=== PATIENT | male | born 1940 | race Caucasian/White ===

== ENCOUNTER 2017-06-13 07:33 | Inpatient (IN) | payer OTHER ==
[2017-06-13] MEDS: DIPHENHYDRAMINE 50 MG INJ IV (07:57)
[2017-06-13] MEDS: METHYLPREDNISOLONE 125 MG INJ IV (07:57)
[2017-06-13] MEDS: FAMOTIDINE 20 MG INJ IV (07:57)
[2017-06-13] MEDS: EPINEPHrine 1 MG INJ IM (07:57)
[2017-06-13] MEDS: IPRATROPIUM (NEB) 0.5 MG/2.5 ML AMP INH (07:59)
[2017-06-13] MEDS: ALBUTEROL 0.083% (NEB) 2.5 MG/3 ML AMP INH (07:59)
[2017-06-13 08:25] LABS: ADD MAN DIFF? NO
[2017-06-13 08:33] LABS: ABNORMAL IP MESSAGE 1; BASOPHIL # 0.1 10^3/ul (0.0-0.1); BASOPHILS % 0.5 % (0.0-2.0); EOSINOPHILS # 0.2 10^3/ul (0.0-0.5); HEMATOCRIT 48.3 % (42.0-52.0); HEMOGLOBIN 16.7 g/dl (14.0-18.0); LYMPHOCYTES # 5.1 10^3/ul (0.8-2.9); LYMPHOCYTES % 44.6 % (15.0-51.0); MEAN CORPUSCULAR HGB CONC 34.6 g/dl (32.0-37.0); MEAN CORPUSCULAR VOLUME 83.9 fl (82.0-101.0); MEAN PLATELET VOLUME 9.9 fl (7.4-10.4); MONOCYTE # 0.8 10^3/ul (0.3-0.9); MONOCYTES % 6.9 % (0.0-11.0); NEUTROPHIL # 5.2 10^3/ul (1.6-7.5); NEUTROPHILS % 45.6 % (39.0-77.0); PLATELET COUNT 193 10^3/UL (140-415); POSITIVE DIFF @See below; RED BLOOD COUNT 5.76 10^6/ul (4.70-6.10); RED CELL DISTRIBUTION WIDTH 13.1 % (11.5-14.5)
[2017-06-13 08:33] LABS: WHITE BLOOD COUNT 11.4 10^3/ul (4.8-10.8)
[2017-06-13 08:47] LABS: ALANINE AMINOTRANSFERASE 35 IU/L (13-69); ALBUMIN 4.8 g/dl (3.3-4.9); ALBUMIN/GLOBULIN RATIO 1.29; ALKALINE PHOSPHATASE 107 IU/L (42-121); ANION GAP 18 (8-16); ASPARTATE AMINO TRANSFERASE 33 IU/L (15-46); BILIRUBIN,INDIRECT 1.5 mg/dl (0-1.1); BILIRUBIN,TOTAL 1.5 mg/dl (0.2-1.3); BLOOD UREA NITROGEN 14 mg/dl (7-20); CALCIUM 9.3 mg/dl (8.4-10.2); CARBON DIOXIDE 25 mmol/L (21-31); CHLORIDE 102 mmol/L (97-110); CREATININE 0.93 mg/dl (0.61-1.24); GLUCOSE 113 mg/dl (70-220); POTASSIUM 4.1 mmol/L (3.5-5.1); SODIUM 141 mmol/L (135-144); TOTAL PROTEIN 8.5 g/dl (6.1-8.1)
[2017-06-13 08:52] LABS: PROTIME 12.2 Sec (11.9-14.9)
[2017-06-13 08:54] LABS: PARTIAL THROMBOPLASTIN TIME 33.8 Sec (25.0-35.0)
[2017-06-13] MEDS ORDERED: ACETAMINOPHEN 325 MG TAB PO (10:00)
[2017-06-13] MEDS ORDERED: ONDANSETRON 4 MG INJ IV (10:00)
[2017-06-13 10:04] LABS: TRANSFUSION CHARGE 1 1
[2017-06-13] MEDS ORDERED: DOCUSATE SODIUM 100 MG CAP PO (16:30)
[2017-06-13] MEDS: AMLODIPINE 5 MG TAB PO (16:30)
[2017-06-13] MEDS ORDERED: DIPHENHYDRAMINE 50 MG INJ IV (16:30)
[2017-06-13] MEDS ORDERED: hydrALAzine 20 MG INJ IV (16:30)
[2017-06-13] MEDS ORDERED: ALBUTEROL 0.083% (NEB) 2.5 MG/3 ML AMP HHN (16:30)
[2017-06-13] MEDS: METOPROLOL 50 MG TAB PO (21:27)
[2017-06-13] MEDS: ATORVASTATIN 40 MG TAB PO (21:28)
[2017-06-14] MEDS: FISH OIL 1,000 MG CAP PO (08:33)
[2017-06-14] MEDS: ASPIRIN (EC) 81 MG TAB PO (08:33)
[2017-06-14] MEDS: METOPROLOL 50 MG TAB PO (08:34)
[2017-06-14] MEDS: MAGNESIUM OXIDE 400 MG TAB PO (08:34)
[2017-06-14] MEDS: AMLODIPINE 5 MG TAB PO (08:34)
[2017-06-14] MEDS: MULTIVITAMINS THERAPEUTIC TAB PO (08:35)
[2017-06-14] MEDS: predniSONE 20 MG TAB PO (08:35)
[2017-06-14] MEDS: traMADol 50 MG TAB PO (14:59)
[2017-06-15] MEDS ORDERED: predniSONE 50 MG TAB PO (09:00)
[2017-06-16] MEDS ORDERED: predniSONE 20 MG TAB PO (09:00)
[2017-06-17] MEDS ORDERED: predniSONE 10 MG TAB PO (09:00)
[2017-06-18] MEDS ORDERED: predniSONE 20 MG TAB PO (09:00)
[2017-06-19] MEDS ORDERED: predniSONE 10 MG TAB PO (09:00)
== END 2017-06-14 16:50 | disposition home or self-care (01) | DRG 916 ==
LOC: TEL 09:48 → E/R 07:33
DX: T78.3XXA Angioneurotic edema, initial encounter (principal); I10 Essential (primary) hypertension; I25.10 Atherosclerotic heart disease of native coronary artery without angina pectoris; Z95.1 Presence of aortocoronary bypass graft; E78.5 Hyperlipidemia, unspecified; Z79.82 Long term (current) use of aspirin; T88.8XXA Other specified complications of surgical and medical care, not elsewhere classified, initial encounter
CPT/HCPCS: 36430; 71045; 80053; 85025; 85610; 85730; 86850; 86900; 86901; 94664; 96372; 96374; 96375; 99291-25

== ENCOUNTER 2018-03-11 03:30 | Inpatient (IN) | payer OTHER ==
[2018-03-11 03:58] LABS: ADD MAN DIFF? NO
[2018-03-11] MEDS: SOD CHLORIDE 0.9% 1,000 ML IV ×4 (03:58→20:25)
[2018-03-11] MEDS: ONDANSETRON 4 MG INJ IV (03:58)
[2018-03-11] MEDS: morphine 4 MG/ML VIAL IV (03:58)
[2018-03-11 04:31] LABS: BASOPHIL # 0.1 10^3/ul (0.0-0.1); BASOPHILS % 0.5 % (0.0-2.0); EOSINOPHILS % 0.2 % (0.0-7.0); HEMATOCRIT 49.1 % (42.0-52.0); HEMOGLOBIN 16.6 g/dl (14.0-18.0); LYMPHOCYTES # 1.9 10^3/ul (0.8-2.9); LYMPHOCYTES % 14.6 % (15.0-51.0); MEAN CORPUSCULAR HEMOGLOBIN 28.2 pg (29.0-33.0); MEAN CORPUSCULAR HGB CONC 33.8 g/dl (32.0-37.0); MEAN CORPUSCULAR VOLUME 83.5 fl (82.0-101.0); MONOCYTE # 0.4 10^3/ul (0.3-0.9); MONOCYTES % 2.9 % (0.0-11.0); NEUTROPHIL # 10.6 10^3/ul (1.6-7.5); NEUTROPHILS % 81.3 % (39.0-77.0); PLATELET COUNT 213 10^3/UL (140-415); RED BLOOD COUNT 5.88 10^6/ul (4.70-6.10); RED CELL DISTRIBUTION WIDTH 13.5 % (11.5-14.5)
[2018-03-11 04:51] LABS: ADD UMIC YES; UR ASCORBIC ACID NEGATIVE (NEGATIVE); UR BILIRUBIN (Dip) NEGATIVE (NEGATIVE); UR BLOOD (Dip) NEGATIVE (NEGATIVE); UR CLARITY CLEAR (CLEAR); UR COLOR YELLOW (YELLOW); UR GLUCOSE (Dip) NEGATIVE (NEGATIVE); UR KETONES (Dip) NEGATIVE (NEGATIVE); UR LEUKOCYTE ESTERASE (Dip) NEGATIVE Leu/ul (NEGATIVE); UR NITRITE (Dip) NEGATIVE (NEGATIVE); UR RBC 1 /HPF (0-5); UR SPECIFIC GRAVITY (Dip) 1.015 (1.003-1.030); UR TOTAL PROTEIN (Dip) 2+ mg/dl (NEGATIVE); UR UROBILINOGEN (Dip) NEGATIVE (NEGATIVE); UR WBC 1 /HPF (0-5)
[2018-03-11 04:59] LABS: LACTIC ACID 2.4 mmol/L (0.5-2.0)
[2018-03-11] MEDS: metroNIDAZOLE 500 MG/NS (PMX) 100 ML IVPB ×2 (05:45→12:45)
[2018-03-11] MEDS: PIPER-TAZO 3.375 GM IV (PMX) 100 ML IVPB ×4 (06:01→23:52)
[2018-03-11] MEDS: SODIUM CHLORIDE 0.9% 1L BAG IV* (06:01)
[2018-03-11 07:03] LABS: ALBUMIN 4.7 g/dl (3.3-4.9); ALBUMIN/GLOBULIN RATIO 1.17; ALKALINE PHOSPHATASE 121 IU/L (42-121); ANION GAP 14 (8-16); ASPARTATE AMINO TRANSFERASE 37 IU/L (15-46); BILIRUBIN,INDIRECT 1.4 mg/dl (0-1.1); BILIRUBIN,TOTAL 1.4 mg/dl (0.2-1.3); BLOOD UREA NITROGEN 13 mg/dl (7-20); CALCIUM 9.8 mg/dl (8.4-10.2); CARBON DIOXIDE 26 mmol/L (21-31); CHLORIDE 104 mmol/L (97-110); CREATININE 0.93 mg/dl (0.61-1.24); GLUCOSE 172 mg/dl (70-220); LIPASE 165 U/L (23-300); POTASSIUM 3.9 mmol/L (3.5-5.1); SODIUM 140 mmol/L (135-144); TOTAL PROTEIN 8.7 g/dl (6.1-8.1)
[2018-03-11 07:13] LABS: TROPONIN-I 0.012 ng/ml (0.000-0.120)
[2018-03-11 07:24] LABS: ALANINE AMINOTRANSFERASE 27 IU/L (13-69)
[2018-03-11] MEDS ORDERED: ONDANSETRON 4 MG INJ IV (07:30)
[2018-03-11] MEDS ORDERED: NACL 0.9% 3 ML SYG IV (07:30)
[2018-03-11] MEDS: FAMOTIDINE 20 MG INJ IV ×2 (08:18→20:20)
[2018-03-11] MEDS: DEXTROSE 5%-0.45% NACL 1,000 ML IV (08:18)
[2018-03-11] MEDS: morphine 2 MG INJ IV ×3 (11:54→20:20)
[2018-03-11 13:48] LABS: LACTIC ACID 2.7 mmol/L (0.5-2.0)
[2018-03-12] MEDS: SOD CHLORIDE 0.9% 1,000 ML IV ×4 (02:30→18:30)
[2018-03-12] MEDS: morphine 2 MG INJ IV (05:11)
[2018-03-12] MEDS: PIPER-TAZO 3.375 GM IV (PMX) 100 ML IVPB ×3 (05:11→23:33)
[2018-03-12 05:59] LABS: ADD MAN DIFF? NO
[2018-03-12 06:19] LABS: BASOPHIL # 0.1 10^3/ul (0.0-0.1); BASOPHILS % 0.2 % (0.0-2.0); HEMATOCRIT 41.6 % (42.0-52.0); HEMOGLOBIN 14.1 g/dl (14.0-18.0); LYMPHOCYTES # 1.6 10^3/ul (0.8-2.9); LYMPHOCYTES % 8.1 % (15.0-51.0); MEAN CORPUSCULAR HEMOGLOBIN 28.8 pg (29.0-33.0); MEAN CORPUSCULAR HGB CONC 33.9 g/dl (32.0-37.0); MEAN CORPUSCULAR VOLUME 85.1 fl (82.0-101.0); MEAN PLATELET VOLUME 10.3 fl (7.4-10.4); MONOCYTE # 1.2 10^3/ul (0.3-0.9); MONOCYTES % 5.9 % (0.0-11.0); NEUTROPHIL # 16.9 10^3/ul (1.6-7.5); NEUTROPHILS % 84.5 % (39.0-77.0); PLATELET COUNT 153 10^3/UL (140-415); RED BLOOD COUNT 4.89 10^6/ul (4.70-6.10); RED CELL DISTRIBUTION WIDTH 14.9 % (11.5-14.5)
[2018-03-12 06:36] LABS: PHOSPHORUS 2.2 mg/dl (2.5-4.9)
[2018-03-12 06:36] LABS: CHOL/HDL RATIO 3.5 RATIO; CHOLESTEROL 113 mg/dl (100-200); HDL CHOLESTEROL 32 mg/dl (31-75); LDL CHOLESTEROL,CALCULATED 61 mg/dl; MAGNESIUM 1.8 mg/dl (1.7-2.5); TRIGLYCERIDES 99 mg/dl (0-149)
[2018-03-12] MEDS ORDERED: SEVOFLURANE 15 MIN (07:00)
[2018-03-12] MEDS ORDERED: SUCCINYLCHOLINE CHLORIDE 100 MG/5 ML SYG IV (07:00)
[2018-03-12] MEDS: HEPARIN 5,000 UNIT/0.5 ML VIAL SC ×2 (09:00→20:49)
[2018-03-12] MEDS: FAMOTIDINE 20 MG INJ IV ×2 (09:09→20:44)
[2018-03-12] MEDS ORDERED: PROPOFOL 20 ML (10:08)
[2018-03-12] MEDS ORDERED: ROCURONIUM 50 MG INJ (10:08)
[2018-03-12] MEDS ORDERED: ROPIVACAINE 0.5 % 30 ML VIAL (10:08)
[2018-03-12] MEDS ORDERED: FENTAnyl 50 MCG/ML VIAL (10:08)
[2018-03-12] MEDS ORDERED: LIDOCAINE 2% (SDV) 5 ML INJ (10:08)
[2018-03-12] MEDS ORDERED: PROVENTIL HFA 6.7GM INHALER (10:17)
[2018-03-12] MEDS ORDERED: CEFAZOLIN 1 GM INJ (10:45)
[2018-03-12] MEDS ORDERED: ONDANSETRON 4 MG INJ (10:46)
[2018-03-12] MEDS ORDERED: FAMOTIDINE 20 MG INJ (10:46)
[2018-03-12] MEDS ORDERED: DEXAMETHASONE 4 MG/ML 1 ML INJ (10:46)
[2018-03-12] MEDS ORDERED: ACETAMINOPHEN 1000MG/100ML IV 100 ML (10:54)
[2018-03-12] MEDS ORDERED: HYDROmorphONE 2 MG/ML SYG (10:55)
[2018-03-12] MEDS ORDERED: hydrALAzine 20 MG INJ (10:56)
[2018-03-12] MEDS: BUPIVACAINE 0.25% (MPF) 30 ML INJ (11:29)
[2018-03-12] MEDS: LIDOCAINE 1%/EPI 30 ML INJ (11:29)
[2018-03-12] MEDS ORDERED: DIPHENHYDRAMINE 50 MG INJ IV (11:30)
[2018-03-12] MEDS ORDERED: HYDROmorphONE 1 MG/5 ML IV SYRINGE IV (11:30)
[2018-03-12] MEDS ORDERED: ONDANSETRON 4 MG INJ IV ×2 (11:30→12:30)
[2018-03-12] MEDS ORDERED: PROCHLORPERAZINE 10 MG INJ IV (11:30)
[2018-03-12] MEDS ORDERED: MEPERIDINE 25 MG INJ IV (11:30)
[2018-03-12] MEDS ORDERED: OXYCODONE/ACETAMINOPHEN (5/325) TAB PO (11:30)
[2018-03-12] MEDS ORDERED: FENTAnyl 50 MCG/ML VIAL IV (11:30)
[2018-03-12] MEDS ORDERED: LABETALOL HCL 20MG INJ IV (11:30)
[2018-03-12] MEDS ORDERED: SUGAMMADEX SODIUM 200 MG/2 ML VIAL IV (11:46)
[2018-03-12] MEDS: hydrALAzine 20 MG INJ IV (12:49)
[2018-03-12] MEDS: D5W-0.45 NACL + KCL 20 MEQ 1,000 ML IV ×2 (13:46→21:31)
[2018-03-12] MEDS: ACETAMINOPHEN 325 MG TAB PO (18:34)
[2018-03-13] MEDS: HYDROmorphONE 0.5 MG/0.5 ML SYG IV ×2 (01:09→05:05)
[2018-03-13] MEDS: D5W-0.45 NACL + KCL 20 MEQ 1,000 ML IV ×3 (01:12→16:28)
[2018-03-13] MEDS: morphine 2 MG INJ IV ×2 (02:13→23:58)
[2018-03-13] MEDS: PIPER-TAZO 3.375 GM IV (PMX) 100 ML IVPB ×4 (05:04→23:41)
[2018-03-13 05:50] LABS: ADD MAN DIFF? NO
[2018-03-13 06:00] LABS: BASOPHILS % 0.2 % (0.0-2.0); HEMATOCRIT 41.4 % (42.0-52.0); HEMOGLOBIN 13.6 g/dl (14.0-18.0); LYMPHOCYTES # 1.3 10^3/ul (0.8-2.9); LYMPHOCYTES % 6.4 % (15.0-51.0); MEAN CORPUSCULAR HEMOGLOBIN 28.3 pg (29.0-33.0); MEAN CORPUSCULAR HGB CONC 32.9 g/dl (32.0-37.0); MEAN CORPUSCULAR VOLUME 86.3 fl (82.0-101.0); MEAN PLATELET VOLUME 10.6 fl (7.4-10.4); MONOCYTE # 1.1 10^3/ul (0.3-0.9); MONOCYTES % 5.5 % (0.0-11.0); NEUTROPHIL # 16.9 10^3/ul (1.6-7.5); NEUTROPHILS % 86.6 % (39.0-77.0); PLATELET COUNT 149 10^3/UL (140-415); RED CELL DISTRIBUTION WIDTH 15.1 % (11.5-14.5)
[2018-03-13 06:00] LABS: WHITE BLOOD COUNT 19.6 10^3/ul (4.8-10.8)
[2018-03-13 06:35] LABS: ANION GAP 11 (8-16); BLOOD UREA NITROGEN 14 mg/dl (7-20); CALCIUM 8.1 mg/dl (8.4-10.2); CARBON DIOXIDE 23 mmol/L (21-31); CHLORIDE 109 mmol/L (97-110); CREATININE 1.05 mg/dl (0.61-1.24); GLUCOSE 136 mg/dl (70-220); POTASSIUM 4.1 mmol/L (3.5-5.1); SODIUM 139 mmol/L (135-144)
[2018-03-13] MEDS: FAMOTIDINE 20 MG INJ IV ×2 (08:38→20:43)
[2018-03-13] MEDS: HEPARIN 5,000 UNIT/0.5 ML VIAL SC ×2 (08:44→20:55)
[2018-03-13] MEDS: DOCUSATE SODIUM 100 MG CAP PO ×2 (12:42→20:43)
[2018-03-13] MEDS: POLYETHYLENE GLYCOL 17 GM PACKET PO (12:42)
[2018-03-13] MEDS: AMLODIPINE 5 MG TAB PO (12:43)
[2018-03-13] MEDS: HYDROCODONE/APAP (5/325) TAB PO (16:28)
[2018-03-13] MEDS: hydrALAzine 20 MG INJ IV ×2 (16:29→22:20)
[2018-03-13] MEDS: ATORVASTATIN 40 MG TAB PO (20:43)
[2018-03-13] MEDS: METOPROLOL 50 MG TAB PO (20:43)
[2018-03-13] MEDS: ALBUTEROL/IPRATROPIUM (NEB) 3 ML AMP HHN (23:47)
[2018-03-14] MEDS: D5W-0.45 NACL + KCL 20 MEQ 1,000 ML IV ×3 (02:43→14:08)
[2018-03-14] MEDS: PIPER-TAZO 3.375 GM IV (PMX) 100 ML IVPB ×4 (05:36→23:35)
[2018-03-14 05:57] LABS: LACTIC ACID 1.3 mmol/L (0.5-2.0)
[2018-03-14 06:37] LABS: BLOOD UREA NITROGEN 14 mg/dl (7-20); CALCIUM 8.1 mg/dl (8.4-10.2); CARBON DIOXIDE 22 mmol/L (21-31); CHLORIDE 110 mmol/L (97-110); CREATININE 0.91 mg/dl (0.61-1.24); GLUCOSE 159 mg/dl (70-220); MAGNESIUM 2.2 mg/dl (1.7-2.5); POTASSIUM 4.1 mmol/L (3.5-5.1)
[2018-03-14 06:54] LABS: ADD MAN DIFF? NO
[2018-03-14 07:03] LABS: BASOPHIL # 0.1 10^3/ul (0.0-0.1); BASOPHILS % 0.3 % (0.0-2.0); HEMATOCRIT 39.3 % (42.0-52.0); HEMOGLOBIN 13.2 g/dl (14.0-18.0); LYMPHOCYTES # 1.3 10^3/ul (0.8-2.9); LYMPHOCYTES % 7.4 % (15.0-51.0); MEAN CORPUSCULAR HEMOGLOBIN 28.5 pg (29.0-33.0); MEAN CORPUSCULAR HGB CONC 33.6 g/dl (32.0-37.0); MEAN CORPUSCULAR VOLUME 84.9 fl (82.0-101.0); MONOCYTE # 1.1 10^3/ul (0.3-0.9); MONOCYTES % 6.1 % (0.0-11.0); NEUTROPHILS % 85.1 % (39.0-77.0); PLATELET COUNT 174 10^3/UL (140-415); RED BLOOD COUNT 4.63 10^6/ul (4.70-6.10); RED CELL DISTRIBUTION WIDTH 15.2 % (11.5-14.5)
[2018-03-14 07:03] LABS: WHITE BLOOD COUNT 17.7 10^3/ul (4.8-10.8)
[2018-03-14 07:37] LABS: ANION GAP 7 (8-16); SODIUM 135 mmol/L (135-144)
[2018-03-14] MEDS: ASPIRIN (EC) 81 MG TAB PO (09:24)
[2018-03-14] MEDS: POLYETHYLENE GLYCOL 17 GM PACKET PO (09:24)
[2018-03-14] MEDS: FAMOTIDINE 20 MG INJ IV ×2 (09:24→21:10)
[2018-03-14] MEDS: DOCUSATE SODIUM 100 MG CAP PO ×2 (09:24→21:09)
[2018-03-14] MEDS: METOPROLOL 50 MG TAB PO ×2 (09:26→21:09)
[2018-03-14] MEDS: MAGNESIUM OXIDE 400 MG TAB PO (09:26)
[2018-03-14] MEDS: AMLODIPINE 5 MG TAB PO (09:27)
[2018-03-14] MEDS: HEPARIN 5,000 UNIT/0.5 ML VIAL SC ×2 (09:41→21:12)
[2018-03-14] MEDS: METOCLOPRAMIDE 10 MG INJ IV ×3 (11:38→23:35)
[2018-03-14] MEDS: ATORVASTATIN 40 MG TAB PO (21:09)
[2018-03-14 22:28] LABS: AADO2 Arterial 255.2 mmHg (7.0-24.0); Allen Test ACCEPTAB; Arterial Base Excess -2.5 mmol/L (-3.0-3); Arterial Blood Gas Oxygen Sat 93.6 mmHG (95.0-100.0); Arterial COHb 0.6 % (0.0-3.0); Arterial Fraction of Oxyhgb 92.8 % (93.0-99.0); Arterial HCO3 20.9 mmol/L (22.0-26.0); Arterial MetHb 0.3 % (0.0-1.5); Arterial Total Hemglobin 13.4 g/dl (12.0-18.0); Arterial pCO2 32.3 mmhg (35-45); MODE MASK - NRB; Site Right Radial
[2018-03-14] MEDS: FUROSEMIDE 20 MG INJ IV (22:46)
[2018-03-14] MEDS: FUROSEMIDE 40 MG INJ IV (23:28)
[2018-03-14] MEDS ORDERED: LORAZEPAM 2 MG INJ (23:38)
[2018-03-14] MEDS: LORAZEPAM 2 MG INJ IV (23:56)
[2018-03-15] MEDS: LORAZEPAM 2 MG INJ IV ×3 (05:31→13:32)
[2018-03-15] MEDS: PIPER-TAZO 3.375 GM IV (PMX) 100 ML IVPB ×3 (05:31→17:50)
[2018-03-15] MEDS: METOCLOPRAMIDE 10 MG INJ IV ×3 (05:31→17:49)
[2018-03-15 05:33] LABS: ADD MAN DIFF? NO
[2018-03-15 05:43] LABS: BASOPHILS % 0.3 % (0.0-2.0); EOSINOPHILS % 0.2 % (0.0-7.0); HEMATOCRIT 36.5 % (42.0-52.0); HEMOGLOBIN 12.6 g/dl (14.0-18.0); LYMPHOCYTES # 1.5 10^3/ul (0.8-2.9); LYMPHOCYTES % 12.2 % (15.0-51.0); MEAN CORPUSCULAR HEMOGLOBIN 28.9 pg (29.0-33.0); MEAN CORPUSCULAR HGB CONC 34.5 g/dl (32.0-37.0); MEAN CORPUSCULAR VOLUME 83.7 fl (82.0-101.0); MEAN PLATELET VOLUME 9.8 fl (7.4-10.4); MONOCYTE # 0.9 10^3/ul (0.3-0.9); MONOCYTES % 7.4 % (0.0-11.0); NEUTROPHIL # 9.9 10^3/ul (1.6-7.5); NEUTROPHILS % 79.1 % (39.0-77.0); PLATELET COUNT 181 10^3/UL (140-415); RED BLOOD COUNT 4.36 10^6/ul (4.70-6.10); RED CELL DISTRIBUTION WIDTH 15.2 % (11.5-14.5)
[2018-03-15 05:43] LABS: WHITE BLOOD COUNT 12.5 10^3/ul (4.8-10.8)
[2018-03-15] MEDS: HALOPERIDOL 5 MG INJ IM (06:34)
[2018-03-15 06:36] LABS: ANION GAP 11 (8-16); BLOOD UREA NITROGEN 17 mg/dl (7-20); CALCIUM 8.2 mg/dl (8.4-10.2); CARBON DIOXIDE 24 mmol/L (21-31); CHLORIDE 108 mmol/L (97-110); CREATININE 1.02 mg/dl (0.61-1.24); GLUCOSE 124 mg/dl (70-220); POTASSIUM 3.4 mmol/L (3.5-5.1); SODIUM 140 mmol/L (135-144)
[2018-03-15] MEDS: morphine 2 MG INJ IV (07:53)
[2018-03-15] MEDS: POLYETHYLENE GLYCOL 17 GM PACKET PO (08:34)
[2018-03-15] MEDS: MAGNESIUM OXIDE 400 MG TAB PO (08:34)
[2018-03-15] MEDS: METOPROLOL 50 MG TAB PO (08:34)
[2018-03-15] MEDS: DOCUSATE SODIUM 100 MG CAP PO (08:34)
[2018-03-15] MEDS: ASPIRIN (EC) 81 MG TAB PO (08:34)
[2018-03-15] MEDS: AMLODIPINE 5 MG TAB PO (08:35)
[2018-03-15] MEDS: FAMOTIDINE 20 MG INJ IV ×2 (10:43→21:41)
[2018-03-15] MEDS: HEPARIN 5,000 UNIT/0.5 ML VIAL SC ×2 (10:43→21:43)
[2018-03-15 11:51] LABS: AADO2 Arterial 206.2 mmHg (7.0-24.0); Allen Test ACCEPTAB; Arterial Base Excess -1.3 mmol/L (-3.0-3); Arterial Blood Gas Oxygen Sat 95.9 mmHG (95.0-100.0); Arterial COHb 0.4 % (0.0-3.0); Arterial Fraction of Oxyhgb 95.1 % (93.0-99.0); Arterial HCO3 21.9 mmol/L (22.0-26.0); Arterial MetHb 0.4 % (0.0-1.5); Arterial Total Hemglobin 13.8 g/dl (12.0-18.0); Arterial pCO2 32.6 mmhg (35-45); Blood Gas IEPAP 15/5; Blood Gas PS 10; MODE MASK - BIPAP; Site Right Radial
[2018-03-15] MEDS: hydrALAzine 20 MG INJ IV ×2 (13:32→20:14)
[2018-03-15] MEDS: FUROSEMIDE 20 MG INJ IV (13:32)
[2018-03-15] MEDS: POTASSIUM CHLORIDE 100 ML IVPB ×2 (15:22→17:43)
[2018-03-15 16:10] LABS: MAGNESIUM 2.2 mg/dl (1.7-2.5)
[2018-03-15] MEDS: FUROSEMIDE 40 MG INJ IV (17:50)
[2018-03-15 19:27] LABS: CREATINE KINASE 346 IU/L (23-200)
[2018-03-15 19:39] LABS: CK INDEX 0.6; CK-MB 2.18 ng/ml (0.0-2.4); TROPONIN-I 0.105 ng/ml (0.000-0.120)
[2018-03-15] MEDS: METOPROLOL 5 MG INJ IV (21:42)
[2018-03-16] MEDS: PIPER-TAZO 3.375 GM IV (PMX) 100 ML IVPB ×4 (01:02→19:45)
[2018-03-16] MEDS: METOCLOPRAMIDE 10 MG INJ IV ×4 (01:02→19:45)
[2018-03-16 01:43] LABS: CREATINE KINASE 251 IU/L (23-200)
[2018-03-16 01:54] LABS: CK INDEX 0.6; CK-MB 1.63 ng/ml (0.0-2.4); TROPONIN-I 0.119 ng/ml (0.000-0.120)
[2018-03-16] MEDS: METOPROLOL 5 MG INJ IV ×4 (04:19→20:32)
[2018-03-16 05:15] LABS: WHITE BLOOD COUNT 11.4 10^3/ul (4.8-10.8)
[2018-03-16 05:15] LABS: ADD MAN DIFF? NO; BASOPHILS % 0.4 % (0.0-2.0); EOSINOPHILS # 0.1 10^3/ul (0.0-0.5); EOSINOPHILS % 0.5 % (0.0-7.0); HEMATOCRIT 37.8 % (42.0-52.0); LYMPHOCYTES # 1.5 10^3/ul (0.8-2.9); LYMPHOCYTES % 12.9 % (15.0-51.0); MEAN CORPUSCULAR HEMOGLOBIN 28.4 pg (29.0-33.0); MEAN CORPUSCULAR HGB CONC 34.4 g/dl (32.0-37.0); MEAN CORPUSCULAR VOLUME 82.7 fl (82.0-101.0); MEAN PLATELET VOLUME 9.9 fl (7.4-10.4); MONOCYTES % 8.5 % (0.0-11.0); NEUTROPHIL # 8.7 10^3/ul (1.6-7.5); NEUTROPHILS % 76.6 % (39.0-77.0); PLATELET COUNT 208 10^3/UL (140-415); RED BLOOD COUNT 4.57 10^6/ul (4.70-6.10); RED CELL DISTRIBUTION WIDTH 14.7 % (11.5-14.5)
[2018-03-16] MEDS: FUROSEMIDE 40 MG INJ IV ×2 (05:43→19:45)
[2018-03-16 05:49] LABS: CREATINE KINASE 249 IU/L (23-200)
[2018-03-16 05:55] LABS: CK INDEX 0.7; CK-MB 1.63 ng/ml (0.0-2.4); TROPONIN-I 0.107 ng/ml (0.000-0.120)
[2018-03-16 06:41] LABS: BLOOD UREA NITROGEN 20 mg/dl (7-20); CALCIUM 8.4 mg/dl (8.4-10.2); CARBON DIOXIDE 26 mmol/L (21-31); CHLORIDE 104 mmol/L (97-110); CREATININE 0.97 mg/dl (0.61-1.24); GLUCOSE 103 mg/dl (70-220); POTASSIUM 3.5 mmol/L (3.5-5.1); SODIUM 140 mmol/L (135-144)
[2018-03-16 07:30] LABS: Allen Test ACCEPTAB; Arterial Blood Gas Oxygen Sat 96.3 mmHG (95.0-100.0); Arterial COHb 0.9 % (0.0-3.0); Arterial Fraction of Oxyhgb 94.9 % (93.0-99.0); Arterial HCO3 25.1 mmol/L (22.0-26.0); Arterial MetHb 0.6 % (0.0-1.5); Arterial Total Hemglobin 15.6 g/dl (12.0-18.0); Arterial pCO2 34.9 mmhg (35-45); MODE HFNC; Site Right Radial
[2018-03-16] MEDS: POLYETHYLENE GLYCOL 17 GM PACKET PO (09:00)
[2018-03-16] MEDS: MAGNESIUM OXIDE 400 MG TAB PO (09:00)
[2018-03-16 09:24] LABS: ANION GAP 10 (5-13)
[2018-03-16] MEDS: FAMOTIDINE 20 MG INJ IV ×2 (09:53→20:32)
[2018-03-16] MEDS ORDERED: HEPARIN 5,000 UNIT/0.5 ML VIAL ×2 (11:41→20:30)
[2018-03-16] MEDS: HEPARIN SODIUM 5,000 UNIT/ML VIAL SC ×2 (11:52→20:35)
[2018-03-16] MEDS: IOHEXOL 300MG/ML 150 ML BTL (23:58)
[2018-03-16] MEDS: SOD CHLORIDE 0.9% 100 ML (23:59)
[2018-03-17] MEDS: METOCLOPRAMIDE 10 MG INJ IV ×4 (00:10→18:19)
[2018-03-17] MEDS: PIPER-TAZO 3.375 GM IV (PMX) 100 ML IVPB ×4 (00:10→18:19)
[2018-03-17] MEDS: hydrALAzine 20 MG INJ IV ×2 (01:04→17:24)
[2018-03-17] MEDS: METOPROLOL 5 MG INJ IV ×4 (03:03→21:26)
[2018-03-17 05:26] LABS: ADD MAN DIFF? NO
[2018-03-17 05:30] LABS: BASOPHIL # 0.1 10^3/ul (0.0-0.1); BASOPHILS % 0.5 % (0.0-2.0); EOSINOPHILS # 0.1 10^3/ul (0.0-0.5); HEMATOCRIT 40.7 % (42.0-52.0); HEMOGLOBIN 13.8 g/dl (14.0-18.0); LYMPHOCYTES # 1.7 10^3/ul (0.8-2.9); LYMPHOCYTES % 14.2 % (15.0-51.0); MEAN CORPUSCULAR HEMOGLOBIN 28.1 pg (29.0-33.0); MEAN CORPUSCULAR HGB CONC 33.9 g/dl (32.0-37.0); MEAN CORPUSCULAR VOLUME 82.9 fl (82.0-101.0); MEAN PLATELET VOLUME 10.4 fl (7.4-10.4); MONOCYTE # 1.1 10^3/ul (0.3-0.9); MONOCYTES % 9.5 % (0.0-11.0); NEUTROPHIL # 8.8 10^3/ul (1.6-7.5); NEUTROPHILS % 73.7 % (39.0-77.0); PLATELET COUNT 273 10^3/UL (140-415); RED BLOOD COUNT 4.91 10^6/ul (4.70-6.10); RED CELL DISTRIBUTION WIDTH 15.1 % (11.5-14.5)
[2018-03-17] MEDS: FUROSEMIDE 40 MG INJ IV (05:59)
[2018-03-17 06:05] LABS: ANION GAP 14 (5-13); BLOOD UREA NITROGEN 22 mg/dl (7-20); CALCIUM 8.7 mg/dl (8.4-10.2); CARBON DIOXIDE 26 mmol/L (21-31); CHLORIDE 101 mmol/L (97-110); CREATININE 1.07 mg/dl (0.61-1.24); GLUCOSE 128 mg/dl (70-220); MAGNESIUM 2.3 mg/dl (1.7-2.5); PHOSPHORUS 3.6 mg/dl (2.5-4.9); SODIUM 141 mmol/L (135-144)
[2018-03-17 08:05] LABS: AADO2 Arterial 91.4 mmHg (7.0-24.0); Allen Test ACCEPTAB; Arterial Base Excess 4.4 mmol/L (-3.0-3); Arterial COHb 0.7 % (0.0-3.0); Arterial Fraction of Oxyhgb 94.8 % (93.0-99.0); Arterial HCO3 27.8 mmol/L (22.0-26.0); Arterial MetHb 0.5 % (0.0-1.5); Arterial Total Hemglobin 15.2 g/dl (12.0-18.0); Arterial pCO2 37.5 mmhg (35-45); MODE NASAL CANNULA; Site Right Radial
[2018-03-17] MEDS ORDERED: HEPARIN 5,000 UNIT/0.5 ML VIAL (08:47)
[2018-03-17] MEDS: FAMOTIDINE 20 MG INJ IV ×2 (09:03→21:25)
[2018-03-17] MEDS: MAGNESIUM OXIDE 400 MG TAB PO (09:03)
[2018-03-17] MEDS: POLYETHYLENE GLYCOL 17 GM PACKET PO (09:03)
[2018-03-17] MEDS: HEPARIN SODIUM 5,000 UNIT/ML VIAL SC (09:14)
[2018-03-17] MEDS: POTASSIUM CHLORIDE 100 ML IVPB (12:36)
[2018-03-17] MEDS: POTASSIUM CHLORIDE (SR) 20 MEQ TAB PO (12:36)
[2018-03-18] MEDS: PIPER-TAZO 3.375 GM IV (PMX) 100 ML IVPB ×3 (00:01→11:54)
[2018-03-18] MEDS: METOCLOPRAMIDE 10 MG INJ IV ×3 (00:02→11:54)
[2018-03-18] MEDS: METOPROLOL 5 MG INJ IV ×3 (03:46→14:30)
[2018-03-18 06:11] LABS: ADD MAN DIFF? NO
[2018-03-18 06:22] LABS: WHITE BLOOD COUNT 9.8 10^3/ul (4.8-10.8)
[2018-03-18 06:22] LABS: BASOPHIL # 0.1 10^3/ul (0.0-0.1); BASOPHILS % 0.8 % (0.0-2.0); EOSINOPHILS # 0.3 10^3/ul (0.0-0.5); EOSINOPHILS % 3.5 % (0.0-7.0); HEMOGLOBIN 13.9 g/dl (14.0-18.0); LYMPHOCYTES # 1.9 10^3/ul (0.8-2.9); LYMPHOCYTES % 19.1 % (15.0-51.0); MEAN CORPUSCULAR HEMOGLOBIN 28.3 pg (29.0-33.0); MEAN CORPUSCULAR HGB CONC 33.9 g/dl (32.0-37.0); MEAN CORPUSCULAR VOLUME 83.5 fl (82.0-101.0); MEAN PLATELET VOLUME 10.5 fl (7.4-10.4); MONOCYTES % 10.5 % (0.0-11.0); NEUTROPHIL # 6.3 10^3/ul (1.6-7.5); PLATELET COUNT 307 10^3/UL (140-415); RED BLOOD COUNT 4.91 10^6/ul (4.70-6.10)
[2018-03-18 06:54] LABS: ANION GAP 8 (5-13); BLOOD UREA NITROGEN 21 mg/dl (7-20); CALCIUM 8.5 mg/dl (8.4-10.2); CARBON DIOXIDE 29 mmol/L (21-31); CHLORIDE 100 mmol/L (97-110); CREATININE 1.04 mg/dl (0.61-1.24); GLUCOSE 145 mg/dl (70-220); POTASSIUM 3.3 mmol/L (3.5-5.1); SODIUM 137 mmol/L (135-144)
[2018-03-18] MEDS: POLYETHYLENE GLYCOL 17 GM PACKET PO (09:59)
[2018-03-18] MEDS: FAMOTIDINE 20 MG INJ IV (09:59)
[2018-03-18] MEDS: MAGNESIUM OXIDE 400 MG TAB PO (09:59)
[2018-03-18] MEDS: FUROSEMIDE 20 MG INJ IV (09:59)
[2018-03-18] MEDS: POTASSIUM CHLORIDE 20 MEQ POWDER FOR ORAL SOLN PO (11:58)
== END 2018-03-18 16:34 | disposition home or self-care (01) | DRG 853 ==
LOC: 6WM 03-15 00:25 → E/R 03:30 → ICU 03-15 11:44 → 2NE 07:51
PROC: 0FT44ZZ Resection of Gallbladder, Percutaneous Endoscopic Approach (ICD-10-PCS; principal; 2018-03-12 10:14)
DX: A41.9 Sepsis, unspecified organism (principal); J96.01 Acute respiratory failure with hypoxia; I50.33 Acute on chronic diastolic (congestive) heart failure; J18.9 Pneumonia, unspecified organism; G92 Toxic encephalopathy; K80.00 Calculus of gallbladder with acute cholecystitis without obstruction; K56.7 Ileus, unspecified; K82.A1 Gangrene of gallbladder in cholecystitis; I11.0 Hypertensive heart disease with heart failure; E83.39 Other disorders of phosphorus metabolism; E78.5 Hyperlipidemia, unspecified; I25.10 Atherosclerotic heart disease of native coronary artery without angina pectoris; R31.9 Hematuria, unspecified; Z95.1 Presence of aortocoronary bypass graft; Z86.73 Personal history of transient ischemic attack (TIA), and cerebral infarction without residual deficits; Z79.82 Long term (current) use of aspirin
CPT/HCPCS: 36415; 36600; 71045; 71260; 74018; 74176; 80048; 80053; 80061; 81001; 82550; 82553; 82803; 82962; 83605; 83690; 83735; 84100; 84484; 85025; 87040; 87081; 87086; 88304; 92526; 92610; 93005; 93306; 94640; 94660; 94664; 96361; 96374; 96375; 99285-25